=== PATIENT | male | born 2000 | race Hispanic/Latino ===

== ENCOUNTER 2023-11-19 15:27 | Emergency (ER) | payer OTHER ==
[~2023-11-19] VITALS: Ht 170.2 cm; Wt 115.5 kg
[2023-11-19] MEDS ORDERED: METH-1164 PO (20:09)
[2023-11-19] MEDS: methocarbamoL 500 MG TAB PO ONE (20:23)
[2023-11-19 20:28] VITALS: BP 126/72; TEMP 98.6; O2SAT 96
== END 2023-11-19 20:32 | disposition home or self-care (01) ==
LOC: EDBD 15:27 → M ED 15:27
DX: M54.16 Radiculopathy, lumbar region (principal); F17.210 Nicotine dependence, cigarettes, uncomplicated; Z79.899 Other long term (current) drug therapy